=== PATIENT | female | born 1975 | race African-American/Black ===

== ENCOUNTER 2024-09-11 19:36 | Emergency (ER) | payer MEDICAID ==
[~2024-09-11] VITALS: Ht 160 cm; Wt 67.4 kg
[2024-09-11 19:39] VITALS: BP 111/77; PULSE 80; RESP 16; TEMP 99.2; O2SAT 100; O2SAT 99
[2024-09-12] MEDS: IBUPROFEN 600MG TABLET PO ONE (00:47)
[2024-09-12] MEDS: TRAMADOL 50MG TABLET PO ONE (00:47)
[2024-09-12 02:10] LABS: CHLORIDE 105 mEq/L (98-107); POTASSIUM 3.3 mEq/L (3.5-5.1); SODIUM 138 mEq/L (136-145)
[2024-09-12 02:11] LABS: CARBON DIOXIDE 26 mEq/L (21-32)
[2024-09-12 02:12] LABS: CALCIUM 9.1 mg/dL (8.7-10.4)
[2024-09-12 02:16] LABS: CREATININE 0.7 mg/dL (0.6-1.0); GLUCOSE 104 mg/dL (70-105)
[2024-09-12 02:17] LABS: UREA NITROGEN BLOOD 12 mg/dL (9-23)
[2024-09-12 03:10] LABS: BASOPHILS % 0.3 % (0.0-2.0); EOSINOPHILS % 0.2 % (0.0-5.0); HEMATOCRIT. 30.4 % (36.0-48.0); HEMOGLOBIN. 10.1 g/dL (12.0-16.0); LYMPHOCYTES % 25.9 % (20.0-50.0); MEAN CORPUSCULAR HEMOGLOBIN 27.9 pg (28.0-32.0); MEAN CORPUSCULAR HGB CONC 33.4 g/dL (31.0-37.0); MEAN CORPUSCULAR VOLUME 83.5 fL (81.0-99.0); MONOCYTES % 10.3 % (2.0-8.0); NEUTROPHILS % 63.3 % (40.0-76.0); PLATELET 210 x1000/uL (130-400); RED BLOOD CELL COUNT 3.64 mill/uL (4.2-5.4); RED CELL DISTRIBUTION WIDTH 13.8 % (11.6-14.6); WHITE BLOOD COUNT 7.6 x1000/uL (4.5-11.0)
[2024-09-12] MEDS ORDERED: POTA-205 MT (03:31)
[2024-09-12] MEDS ORDERED: NAPR-1486 MT (03:37)
[2024-09-12] MEDS: POTASSIUM CHLORIDE 20MEQ TABLET SR PO ONE (03:45)
== END 2024-09-12 03:56 | disposition home or self-care (01) ==
LOC: ER 19:36
DX: E87.6 Hypokalemia (principal); M79.604 Pain in right leg; M79.605 Pain in left leg; Z98.890 Other specified postprocedural states
CPT/HCPCS: 36415; 80048; 83605; 85025; 85379; 99284